=== PATIENT | female | born 1965 | race Two or more races ===

== ENCOUNTER 2025-02-16 16:59 | Emergency (ER) | payer MEDICAID, OTHER ==
[~2025-02-16] VITALS: Ht 165.1 cm; Wt 54.5 kg
[2025-02-16 16:59] VITALS: BP 109/83; PULSE 77; RESP 16; TEMP 98.1; O2SAT 89
== END 2025-02-16 17:19 | disposition left against medical advice (07) ==
LOC: EDBD 16:59 → ER 16:59
DX: R45.851 Suicidal ideations (principal); Z53.21 Procedure and treatment not carried out due to patient leaving prior to being seen by health care provider